=== PATIENT | male | born 1995 | race Caucasian/White ===

== ENCOUNTER 2019-10-25 12:39 | Emergency (ER) | payer OTHER ==
[~2019-10-25] VITALS: Ht 175.3 cm; Wt 115.8 kg
[2019-10-25 12:57] VITALS: BP 141/85
--- NOTE | 2019-10-25 15:38 | NUR ---
TASK RN: SLING PLACED ON PT.
--- NOTE | 2019-10-25 16:27 | NUR ---
Pt to room from lobby.
== END 2019-10-25 17:12 | disposition home or self-care (01) ==
LOC: ED 17:05
DX: S40.011A Contusion of right shoulder, initial encounter (principal); V09.9XXA Pedestrian injured in unspecified transport accident, initial encounter; Y93.89 Activity, other specified; Y92.488 Other paved roadways as the place of occurrence of the external cause; Y99.8 Other external cause status
CPT/HCPCS: 99283